=== PATIENT | female | born 1945 | race Caucasian/White ===

== ENCOUNTER → 2016-07-26 | Day surgery (SDC) | payer MEDICARE, OTHER, MEDICAID ==
[~2016-07-26] VITALS: Ht 162.6 cm; Wt 69.0 kg
[~2016-07-26] MED LIST: ASPIRIN EC81 MG PO; ATORVASTATIN CA40 MG PO; B COMPLETE1 EACH PO; CPAP INH; CRANBERRY TABL1 EACH PO; HYZAAR 100-12.1 EACH PO; LEVOTHROID (S112 MCG PO; LOPRESSOR25 MG PO; MIRALAX17 GM PO; THERA-VITE W/ B1 TAB PO
--- NOTE | ~2016-07-26 | OR ---
PATIENT'S NAME: JUSTEN PHAM [facility] AGE: 70 Y [address] ROOM: [place] [id number] LOCATION: [facility] [place] ADMIT DATE: 07/26/2016 OR/Procedure Report DISCHARGE DATE: FAMILY PHYSICIAN: Chet Rutherford MD ATTENDING PHYSICIAN: DEANDRE DIXON SURGEON: Deandre Dixon MD RECREATION WORKER: None. DATE OF PROCEDURE: 07/26/2016 PREOPERATIVE DIAGNOSIS: Bladder stone. POSTOPERATIVE DIAGNOSIS: Bladder stone. OPERATIVE PROCEDURE: Cystolitholapaxy (for stone size greater than 2.5 cm). INDICATION FOR PROCEDURE: The patient is a pleasant 70-year-old female with history of cervical cancer for which she had underwent external beam radiation therapy. 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 She had also developed a vesicovaginal fistula and underwent repair by Dr. Marshall, December 04, 2013. She had a recurrence of her fistula shortly after repair. The patient then recently presented with complaints of continued blood per vagina and abdominal pain. She was found on CT scan to have findings including left hydronephrosis, possible bladder mass, and large bladder stone. She underwent initial treatment on July 02, 2016, with cystoscopy, clot evacuation, bladder biopsy, and fulguration. Pathology came back consistent with necrotic bladder tissue. I was unable to place a stent in the retrograde fashion and Dr. Sullivan with Interventional Radiology ultimately was able to get a stent placed in an anterograde fashion. The patient underwent percutaneous nephrostomy tube removal on July 22, [address] Sullivan and still has an indwelling left ureteral stent. The patient presents today for definitive treatment of her large bladder stone. The patient was explained the risks, benefits, indications, and alternatives to the above procedure and wished to proceed and consented freely. DESCRIPTION OF OPERATION: The patient was brought back to the operating room, where she was placed on the OR table in the supine position. A surgical time- out was called where patient identification, surgical site, and procedure was then verified. We also did verify that the patient received an IV Levaquin antibiotic within an hour of beginning the procedure. The patient then underwent successful administration of monitored anesthesia care. The patient was then moved and placed in a low lithotomy position where her genital area was then prepped and draped in the usual sterile fashion. I carefully advanced the nephroscope per urethra into her bladder and was able to visualize the large bladder stone, which measured approximately 2.5 to 3 cm in PATIENT'S NAME: JUSTEN PHAM [facility] AGE: 70 Y [address] ROOM: [place], [place] [address] LOCATION: [facility] [place] ADMIT DATE: 07/26/2016 OR/Procedure Report DISCHARGE DATE: FAMILY PHYSICIAN: Chet Rutherford MD ATTENDING PHYSICIAN: DEANDRE DIXON size. I then used the CyberWand lithotripsy device to carefully press and fragment the stone while simultaneously evacuating debris through the CyberWand with suction. I carefully treated the stone and did not have any significant irritation from the surrounding bladder wall. I did visualize the indwelling curl of her distal left ureteral stent. There were no additional bladder stones within the bladder nor was there any evidence of any bladder tumors. 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 There were no bladder diverticula. Her ureteral orifices were noted to be in their orthotopic location. The patient did tolerate the procedure well. The patient was then awoken from monitored anesthesia care where she was taken out of the lithotomy position, transferred to the recovery bed, and transported to the recovery room in good condition. COMPLICATIONS: None. SPECIMENS: None. DRAINS: None. FOLLOWUP PLAN: We will plan to have the patient back for followup in [facility] in one month from now and at that time may consider getting a renal ultrasound to see if her stent is still draining with hopefully some improvement with less hydronephrosis. She will likely be due for another stent exchange sometime in September. 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 DEANDRE DIXON MD GP/modl /[id number] CC: Chet Rutherford MD d: 07/27/16 0020 t: 05/21/17 0831, OPERATIVE SUMMARY
== END | disposition disaster alternative care site (69) ==
LOC: GPOC 07-21 11:00 → GSDC 12:49 → GPOC 13:00
PROC: 0TCB8ZZ Extirpation of Matter from Bladder, Via Natural or Artificial Opening Endoscopic (ICD-10-PCS; principal; 2016-07-26)
DX: N21.0 Calculus in bladder (principal); I10 Essential (primary) hypertension; E03.9 Hypothyroidism, unspecified; E78.5 Hyperlipidemia, unspecified; M19.90 Unspecified osteoarthritis, unspecified site; G47.33 Obstructive sleep apnea (adult) (pediatric); Z93.3 Colostomy status; Z98.890 Other specified postprocedural states; Z79.82 Long term (current) use of aspirin; Z79.899 Other long term (current) drug therapy
CPT/HCPCS: J1956; J7030